=== PATIENT | female | born 1970 ===

== ENCOUNTER 2019-01-01 10:28 | Outpatient (CLI) | payer OTHER | END 2019-01-01 10:29 | disposition home or self-care (01) | LOC: C.PAT 10:28 | DX: N93.9 Abnormal uterine and vaginal bleeding, unspecified (principal); D25.9 Leiomyoma of uterus, unspecified; R10.2 Pelvic and perineal pain ==

== ENCOUNTER 2019-01-08 06:20 | Observation (INO) | payer OTHER ==
[2019-01-01 11:03] VITALS: BMI 39.0
[2019-01-08] MEDS ORDERED: ceFAZolin 1 gm in NS 1 GM/100 ML BAG IVPB ONE (07:29)
[2019-01-08] MEDS ORDERED: Lidocaine Hydrochloride 0 ML INJ ONE (07:29)
[2019-01-08] MEDS ORDERED: Bupivacaine 0.25% 20 ML INJ IJ ONE (07:29)
[2019-01-08] MEDS ORDERED: Propofol 10 mg/ml Inj (20 ML) ONE (08:13)
[2019-01-08] MEDS ORDERED: Midazolam 2 MG/2 ML VIAL ONE (08:13)
[2019-01-08] MEDS ORDERED: Rocuronium 10 mg/ml (5 ml) ONE ×2 (08:42→08:59)
[2019-01-08] MEDS ORDERED: Oxycodone/Acetaminophen 5/325 mg Tab PO PRN (10:03)
[2019-01-08] MEDS ORDERED: Neostigmine 1:1000 (1 mg/ml) Inj ONE (10:07)
[2019-01-08] MEDS ORDERED: HYDROmorphone 0.5 mg/0.5 ml ISec IVP PRN (10:11)
[2019-01-08] MEDS ORDERED: Lactated Ringer's 1,000 ML IV SCH (10:15)
[2019-01-08] MEDS ORDERED: HYDROmorphone 0.5 mg/0.5 ml ISec ONE (10:42)
--- NOTE | 2019-01-08 14:40 | OP ---
PROCEDURE DATE: 01/08/2019 PREOPERATIVE DIAGNOSES: Symptomatic fibroid uterus, pelvic pain, menorrhagia, and anemia. POSTOPERATIVE DIAGNOSES: Symptomatic fibroid uterus, pelvic pain, menorrhagia, and anemia. OPERATION PERFORMED: Robotic-assisted hysterectomy, cystoscopy with stent placement, and bilateral salpingectomy. SURGEON: Latasha Stallworth MD WEED CONTROL INSPECTOR: Tyshawn Zacarias MD. He was helpful in creating exposure and obtaining hemostasis, extraction of the specimen, and closure of the patient. The procedure would not be possible without his assistance. ANESTHESIA: General. ESTIMATED BLOOD LOSS: 50 mL. The patient received approximately 1 L of D5LR intraoperatively. URINE OUTPUT: Approximately 800 mL of clear urine. OPERATIVE FINDINGS: A bulky uterus, previous tubal ligation noted. Normal ovaries bilaterally. Bladder, the dome of the bladder was intact. Bilateral ureteral efflux of urine was noted. DESCRIPTION OF PROCEDURE: After informed consent was obtained, the patient was taken to the operating room where she was given general anesthesia. She was then prepped and draped in a normal sterile fashion and placed in [facility]. Attention was then turned to the urethra where the cystoscope was inserted. The intertrochanteric ridge was identified. The left ureteral orifice was noted. A 5-Vietnamese catheter was then inserted into the ureter. A 5 mL of ICG was injected and a similar procedure was performed on the left. The cystoscope was then removed from the bladder, a weighted speculum was inserted in the vagina. Cervix was visualized and grasped with single-tooth tenaculum and gently dilated. A large Vcare uterine manipulator was then inserted into the uterine cavity with the need to manipulate the uterus. A Garcia catheter was inserted into the patient's bladder to monitor urinary output. Attention was then turned to the abdomen where Marcaine was infused approximately 3 cm superior to the umbilicus. An 8 mm incision was made and the abdomen was tented upward and the Veress needle was inserted into the abdominal cavity. Placement was confirmed with a fluid-filled syringe. The abdomen was then insufflated to 15 mmHg. The Veress needle was then removed and a robotic port was introduced into the abdominal cavity. The placement was confirmed with the laparoscope. The abdomen was then surveyed with the findings noted above. Attention was then turned to approximately 4 cm superior to the right anterior iliac crest. Marcaine was infused and an 8 mm incision was made and a robotic port was introduced into the abdominal cavity under direct visualization. A similar procedure was performed on the left. Approximately 10 cm right lateral to the umbilicus, Marcaine was infused, an 8-mm incision was made, and a robotic port was introduced into the abdominal cavity under direct visualization. Approximately 10 cm right lateral to the umbilicus, Marcaine was infused, a 5 mm incision was made, and a 5 mm port was introduced into the abdominal cavity. Now the patient was then placed in steep Trendelenburg. The table was lowered and the robot was brought along the patient's side and docked without complication. The instruments used for the surgery were a PK dissector, Mike suture cut, ProGrasp, and scissor. I then broke scrubbed and proceeded to the surgical consult. Attention was then turned to the left utero-ovarian ligament. It was serially coagulated and transected with the scissor. The fallopian tube was then identified, serially coagulated and transected with the scissor. In a similar fashion, the round ligament was identified, serially coagulated, and transected with the scissors. The vesicouterine peritoneum was then undermined with the PK dissector and transected with the scissor down to the level of the Vcare cup anteriorly. A similar procedure was performed posteriorly. The posterior peritoneum was identified, undermined with the PK dissector, and transected with the scissor down to the level of the Vcare cup posteriorly. The vascular bundle and uterine arteries were identified laterally. The ureter was noted, Firefly technology was activated, and ureter was clearly identified inferiorly. The uterine arteries were then skeletonized and serially coagulated to the level of the Vcare cup, and then transected with the scissor. Attention was then turned to the right side of the uterus which in similar fashion the utero-ovarian ligament was identified, serially coagulated, and transected with the scissor. The fallopian tube was then identified, serially coagulated and transected with the scissor. Then in similar fashion, the round ligament was identified, serially coagulated, and transected with the scissor. The vesicouterine peritoneum was then undermined with the PK dissector and transected with the scissor to the level of the Vcare cup. Attention was then turned posteriorly which in similar fashion, the peritoneum was undermined with PK dissector and then transected. The uterine artery was then skeletonized and then serially coagulated to the level of the Vcare cup and transected with the scissors. The cervix and uterus were then amputated from the vagina using the hot jese. The specimen was then delivered vaginally. The vaginal cuff was closed with 2-0 on a barbed suture. The abdomen was then copiously irrigated. Irrigant was removed with a suction device and it was noted to be hemostatic. All instruments were then removed from the abdomen. The incisions were repaired with 3-0 Biosyn and Dermabond. All sponge, lap, needle, and instrument counts were correct x2, and the patient was taken to the recovery room in awake and stable condition. Latasha Stallworth MD MTDReynaldo
[2019-01-09 08:19] VITALS: BP 132/88; PULSE 85; RESP 18; TEMP 98.2; O2SAT 96
[2019-01-09 08:26] LABS: HEMOGLOBIN 9.8 g/dL (11.0-16.0); MEAN CELL VOLUME 69.6 fL (81.0-99.0); MEAN CORPUSCULAR HEMOGLOBIN 21.9 pg (27.0-31.0); MEAN CORPUSCULAR HGB CONC 31.4 g/dL (33.0-37.0); MEAN PLATELET VOLUME 7.3 fL (7.2-11.7); RBC 4.46 Mil/uL (3.80-5.20); RED CELL DISTRIBUTION WIDTH 17.3 % (11.5-14.5)
[2019-01-09 08:30] LABS: WHITE BLOOD COUNT 8.5 K/uL (4.8-10.8)
--- NOTE | 2019-01-09 09:34 | CP.SDSHP ---
Same Day Surgery H & P - Allergies Allergies: Allergies No Known Allergies Allergy (Verified 01/01/19 10:58) - Physical Exam Vital Signs: Vital Signs 01/09/19 08:16 Temperature 98.2 F Pulse Rate 85 Respiratory 18 Rate Blood Pressure 132/88 O2 Sat by Pulse 96 Oximetry Short Stay Discharge - Short Stay Discharge Admitting Diagnosis/Reason for Visit: FIBROID UTERUS HYSTERECTOMY Progress Note/Discharge Note with Instructions: doing well ambilating tolerating diet pain well controlled vss afebrile abd soft nt nd ext no homans pod 1 will d/c home f/u with song in one week nothing per vagina no heavy lifting
== END 2019-01-09 15:21 | disposition home or self-care (01) ==
LOC: C.SDS 06:20 → MERGE 07:45 → C.9S 10:04 → C.4M 12:44
PROVIDERS: ADMIT Obstetrics & Gynecology Gynecology; ATTEND Obstetrics & Gynecology Gynecology
DX: D25.9 Leiomyoma of uterus, unspecified (principal); R10.2 Pelvic and perineal pain; D64.9 Anemia, unspecified; N92.0 Excessive and frequent menstruation with regular cycle; Z98.51 Tubal ligation status; N88.8 Other specified noninflammatory disorders of cervix uteri; N70.11 Chronic salpingitis; N83.8 Other noninflammatory disorders of ovary, fallopian tube and broad ligament; N80.0 Endometriosis of uterus
CPT/HCPCS: 36415; 52332; 58570; 58700; 85027; 86850; 86900; 88307; G0378; J0131; J0690; J1170; J1885; J2001; J2250; J2405; J2704; J2710; J3010; J7120